=== PATIENT | male | born 1955 | race Caucasian/White ===

== ENCOUNTER → 2021-07-20 | Day surgery (SDC) | payer BC, OTHER ==
[~2021-07-20] VITALS: Ht 177.8 cm; Wt 95.3 kg
[~2021-07-20] MED LIST: ASA81BEC PO; ATORVASTATIN CA20 MG PO; BACTRIM DS TAB1 EACH PO; CENTRUM SILVER1 EAC7 PO; FENUGREEK500 MG PO; MAGNESIUM250 M1 PO; PERCOCET 7.5-31 EAC1 PO; PROBIOSLIM PO; SUPER B COMPLE1 EAC2 PO; TRIPLE OMEGA C400 MG PO; VITAMIN C1000 MG PO; VITAMIN D310 MCG PO; ZINC10 MG PO
--- NOTE | ~2021-07-20 | O ---
[facility] [place] [address] OPERATIVE REPORT Name: YINKA BRAVO Room #: REG [facility].#: [id number] Admission: 07/20/21 Attend Phys: Chandana Duque MD Discharge: Date of : 59 Report #: [id number] THIS REPORT FOR: cc: FAM - Family physician unknown FAM - Family physician unknown Chandana Duque MD ~ DATE OF SERVICE: 07/20/2021 PREOPERATIVE DIAGNOSIS: Left small toe septic arthritis. POSTOPERATIVE DIAGNOSIS: Left small toe septic arthritis. PROCEDURE: Left small toe amputation. SURGEON: Chandana Duque MD BLEACHER SULFITE PULP: None. ANESTHESIA: General. ESTIMATED BLOOD LOSS: 10 mL DRAINS: No drains. TOURNIQUET TIME: 12 minutes. DESCRIPTION OF PROCEDURE: The patient was brought to the operating room where he was placed under general anesthesia. Once under adequate general anesthesia, his left lower extremity was prepped and draped in a sterile manner. The extremity was elevated and tourniquet placed to 250 mmHg. The patient's previous laceration was then used and extended circumferentially about the toe with exposure then of the proximal phalangeal head. This was then subsequently excised utilizing a rongeur, thereby decompressing the toe in the wound. The wound was then irrigated copiously and closed with 2-0 nylon for the skin. The wound was dressed with Xeroform, 4 x 4's, and sterile soft compressive dressing was placed. Tourniquet was let down at 12 minutes. Toes were pink and warm. Good capillary refill. There were no complications from the procedure. The patient tolerated the procedure well and was to the recovery room without incident. By: [id number] Chandana Duque MD /kenny
== END | disposition home or self-care (01) ==
LOC: OR 07:37
PROVIDERS: ATTEND Orthopaedic Surgery Foot and Ankle Surgery
DX: M00.872 Arthritis due to other bacteria, left ankle and foot (principal); E78.5 Hyperlipidemia, unspecified; Z98.890 Other specified postprocedural states; Z79.899 Other long term (current) drug therapy; Z87.891 Personal history of nicotine dependence; Z86.73 Personal history of transient ischemic attack (TIA), and cerebral infarction without residual deficits; Z20.822 Contact with and (suspected) exposure to COVID-19
CPT/HCPCS: 50010; 50101; 50386; 50951; 56527; 57091; 62110; 62900; 70005